=== PATIENT | female | born 1990 | race African-American/Black ===

== ENCOUNTER 2017-09-21 12:43 | Emergency (ER) | payer SELFPAY, OTHER ==
[2017-09-21 14:50] LABS: INFLUENZA A PATIENT NEGATIVE (NEGATIVE); INFLUENZA B PATIENT NEGATIVE (NEGATIVE); OBC FLU VALID
== END 2017-09-21 15:15 | disposition home or self-care (01) ==
LOC: ER 12:43
DX: R05 Cough (principal); J02.9 Acute pharyngitis, unspecified; J34.89 Other specified disorders of nose and nasal sinuses; Z88.4 Allergy status to anesthetic agent
CPT/HCPCS: 87804; 87804-59; 99284